=== PATIENT | female | born 1945 | race Caucasian/White ===

== ENCOUNTER 2016-05-28 18:47 | Emergency (ER) | payer MEDICARE ==
[2016-05-28 19:30] LABS: Hematocrit 39.6 % (37.0-47.0); Hemoglobin 13.4 gm/dL (12.5-16.0); Mean Cell Volume 93.4 fl (78-100); Mean Corpuscular Hemoglobin 31.6 pg (27-31); Mean Corpuscular Hgb Conc 33.8 g/dl (32-36); Mean Platelet Volume 10.7 fl (6.0-9.5); Neutrophil # 11.3 K/mm3 (1.3-6.0); Neutrophil % 86.4 % (42-75.0); Platelet Count 223 K/mm3 (150-450); Red Blood Count 4.24 M/mm3 (4.2-5.4); Red Cell Distribution Width 12.6 % (11.5-14.0); White Blood Count 13.1 K/mm3 (4.0-10.5)
[2016-05-28] MEDS ORDERED: MECLIZINE HCL 25 MG TABLET PO ONE (19:40)
[2016-05-28 19:52] LABS: Prothrombin Time (Patient) 10.7 Seconds (9.4-11.4)
[2016-05-28 19:53] LABS: INR 1.03 INR (0.90-1.10); Partial Thrombolplastin Time 31.5 Seconds (24-32)
[2016-05-28 19:59] LABS: ALT 27 U/L (19-67); AST 26 U/L (0-48); Albumin * 3.1 gm/dl (3.4-5.0); Alkaline Phosphatase * 133 U/L (50-170); Bilirubin, Total 0.5 mg/dL (0.0-1.1); Blood Urea Nitrogen 17 mg/dL (3-23); Ca. Corrected For Albumin 8.9 mg/dL (8.4-10.2); Calcium * 8.5 mg/dL (7.9-10.9); Carbon Dioxide 26.5 mmol/L (24-32.6); Chloride 102 mmol/L (97-106); Glucose * 198 mg/dL (70-110); Potassium 3.5 mmol/L (3.4-4.6); Sodium 139 mmol/L (132-142); Total Protein 6.9 gm/dL (6.2-8.2); Troponin I Less than 0.017 ng/ml (0.00-0.10)
[2016-05-28] MEDS ORDERED: MECLIZINE HCL 25 MG TABLET ONE (20:04)
--- OUTSIDE RECORDS SUMMARY | 2016-05-28 20:08 | XMS REPORT | Continuity of Care Document ---
:1945 Author Organization [facility] ([facility]) Address [address] [place] [address] Phone [phone] Care Team Providers Name Role Phone Unavailable Primary Care Provider Unavailable Source Comments This disclosure is being made pursuant to the Care Everywhere program, applicable federal and state laws, and may not contain all informaitonavailable regarding this patient.[facility] ([facility]) Active Allergies and Adverse Reactions Not on File Current Medications Not on file Active Problems Not on file Social History Tobacco Use Types Packs/Day Years Used Date Never Assessed Plan of Care Health Maintenance Due Date Last Done Comments Hepatitis B Vaccine (1 of 3 - Primary Series) 1945 Tdap Vaccine 02/05/1955 Lipid Disorder Screening 02/05/1962 Td Vaccine 02/05/1962 Mammogram 1984 Colonoscopy 02/05/1994 Zoster Vaccine 2004 Osteoporosis Screening (DXA Bone Density) 02/05/2009 Pneumococcal Vaccine (1 of 2 - PCV13) 02/05/2009 Influenza Vaccine: Seasonal (#1) 09/18/2015 Results from Last 3 Months Not on file
--- NOTE | 2016-05-28 20:24 | ERNOTE ---
Dizziness ER Record Date of Service: 05/28/16 Presenting Symptoms: dizziness Time Seen by Provider: 05/28/16 19:16 Source: patient Exam Limitations: no limitations Immunizations: IMMUNIZATION HX Immunizations Up to Date No Allergies/Adverse Reactions: Allergies Allergy/AdvReac Type Severity Reaction Status Date / Time No Known Allergies Allergy Unverified 05/28/16 19:08 Home Medications: HOME MEDICATIONS Haloperidol [Haldol] 5 mg PO DAILY 05/28/16 [Last Taken Unknown] Meclizine HCl [Antivert] 12.5 mg PO Q6H PRN #30 tab 05/28/16 [Last Taken Unknown ] Mirtazapine [Remeron] 30 mg PO HS 05/28/16 [Last Taken Unknown] carBAMazepine [Tegretol] 400 mg PO DAILY 05/28/16 [Last Taken Unknown] - History of Present Illness Narrative: Pt. comes in with c/o dizziness for four hours that began suddenly. Pt. denies any room spinning but states that she feels off balance on her feet and cannot get them to move like she would like. Pt. denies any NVD, fever, SOB, CP, palpitations, recent illness, or other symptoms. Pt. is on Haldol, Tegretol, and remeron for her bipolar. Review of Systems - Review of Systems Constitutional: Present: no symptoms reported. Absent: recent illness, fever, chills, weakness, fatigue, malaise EYE: Present: no symptoms reported ENT: Present: no symptoms reported Respiratory: Present: no symptoms reported. Absent: shortness of breath, cough , wheezing Cardiology: Present: no symptoms reported. Absent: chest pain, palpitations, edema Gastrointestinal/Abdominal: Present: no symptoms reported. Absent: nausea, vomiting, diarrhea Genitourinary: Present: no symptoms reported. Absent: frequency, pain, decreased urinary output Musculoskeletal: Present: no symptoms reported. Absent: back pain, joint pain Skin: Present: no symptoms reported Neurological: Present: dizziness/light-headedness. Absent: anxiety, depressed, numbness, tingling All Other Systems: All systems neg except as marked - Patient's Past Medical History Patient History - Medical: Depression Patient History - Cardiac/Respiratory: No pertinent hx Patient History - Cancer: No Hx of Cancer Patient History - Surgical Procedures: Hysterectomy Patient History - Other: None - Social History Living Situations: home Psych History: No pertinent hx Smoking Status: Current every day smoker Patient requests Smoking Cessation Consult: No Initiate information on Smoking Cessation: No Alcohol Use: none Drug Use: none - Immunizations Immunizations Up to Date: No Physical Exam - Physical Exam General Appearance: Present: wd/wn, alert, no apparent distress Eye Exam: Normal inspection: bilateral, PERRL: bilateral, EOMI: bilateral Ears, Nose, Throat: Present: normal ENT inspection, normal pharynx Neck: Present: normal inspection, nontender. Absent: lymphadenopathy (R), lymphadenopathy (L) Respiratory: Present: no respiratory distress, normal breath sounds, no accessory muscle use, chest nontender, lungs clear Cardiovascular/Chest: Present: regular rate, rhythm, no murmur, normal peripheral pulses Gastrointestinal/Abdominal: Present: normal bowel sounds, nontender, nondistended, soft, no organomegaly Back Exam: Present: normal inspection, normal range of motion, no CVA tenderness , no vertebral tenderness Extremity Exam: Present: normal inspection, non-tender, normal range of motion, no edema Neurological Exam: Present: alert, oriented, normal mood/affect, gamma operator II-XII nml as tested, other - extrapyramidial movements, slurring of her speech and dyskinesia. Pt. daughter confirms this is pt. norm Skin Exam: Present: normal color, warm/dry. Absent: pallor, skin rash Lymphatic Exam: Present: no adenopathy ED Progress - Date and Time Seen: Date and Time: 05/28/16 20:54 Pt. improved with meclizine and as all tests are as expected for pt. Will send pt. home on meclizine and have her follow up with PCP as her extrapyramidial movements may be contributing to her symptoms. - Results and Orders Patient's Lab Results:: I have reviewed the patient's lab results. - Vital Signs Patient's Vital Signs:: I have reviewed the patient's vital signs. Vital Signs: Vital Signs 05/28/16 19:03 Temperature 36.6 C Pulse Rate 100 Respiratory 18 Rate Blood Pressure 130/55 O2 Sat by Pulse 100 Oximetry - EKG EKG: NSR, ST depression - inferior leads EKG read: Reviewed by me EKG Comments: Interpreted by Dr Isaacs - X-Ray X-Ray #1 X-Ray: chest Interpretation: Reviewed by me X-ray Comments: COPD changes - CT/Ultrasound CT/Ultrasound Narrative: CT head negative - Progress/Reassessment Chief Complaint: Dizziness Departure Clinical Impression: BPV (benign positional vertigo) Qualifiers: Laterality: bilateral Qualified Code(s): H81.13 - Benign paroxysmal vertigo, bilateral - Departure Disposition: Home self-care Condition: Good Instructions: Vertigo, [id number] Additional Instructions: Please folow up with your primary provider in 2-3 days. Prescriptions: Meclizine HCl [Antivert] 12.5 mg PO Q6H PRN #30 tab PRN Reason: DIZZINESS
[2016-05-28 20:36] LABS: Hemoglobin A1C 5.8 % (4.00-6.0)
[2016-05-28 21:16] VITALS: BP 107/65
== END 2016-05-28 21:14 | disposition home or self-care (01) ==
LOC: ER 18:47
DX: H81.13 Benign paroxysmal vertigo, bilateral (principal); Z72.0 Tobacco use; F31.70 Bipolar disorder, currently in remission, most recent episode unspecified

== ENCOUNTER 2016-06-22 12:54 | Emergency (ER) | payer MEDICARE ==
[2016-06-22 13:36] VITALS: BP 110/73
[2016-06-22] MEDS ORDERED: ALBUTEROL SULFATE/IPRATROPIUM 3 ML NEBU IH ONE ×2 (15:29→15:39)
--- OUTSIDE RECORDS SUMMARY | 2016-06-22 15:41 | XMS REPORT | Continuity of Care Document ---
:1945 Author Organization [facility] ([facility]) Address [address] [place] [address] Phone [phone] Care Team Providers Name Role Phone Unavailable Primary Care Provider Unavailable Source Comments This disclosure is being made pursuant to the Care Everywhere program, applicable federal and state laws, and may not contain all informaitonavailable regarding this patient.[facility] ([facility]) Active Allergies and Adverse Reactions Not on [...]
--- NOTE | 2016-06-22 16:08 | ERNOTE ---
Date of Service: 06/22/16 Time Seen by Provider: 06/22/16 15:28 Stated Complaint: TROUBLE CATCHING BREATHING Presenting Symptoms:: cough, other - sob Source: patient Exam Limitations: no limitations Immunizations: IMMUNIZATION HX Immunizations Up to Date Yes History of Influenza Vaccine No Hx Pneumococcal Vaccination No Allergies/Adverse Reactions: Allergies No Known Allergies Allergy (Verified 06/22/16 13:36) Home Medications: HOME MEDICATIONS Haloperidol [Haldol] 5 mg PO DAILY 05/28/16 [Last Taken Unknown] Meclizine HCl [Antivert] 12.5 mg PO Q6H PRN #30 tab 05/28/16 [Last Taken Unknown ] Mirtazapine [Remeron] 30 mg PO HS 05/28/16 [Last Taken Unknown] carBAMazepine [Tegretol] 400 mg PO DAILY 05/28/16 [Last Taken Unknown] Albuterol Sulfate [Proair Hfa] 2 puff IH QID PRN #1 inhaler 06/22/16 [Last Taken Unknown] Levofloxacin [Levaquin] 500 mg PO DAILY #7 tablet 06/22/16 [Last Taken Unknown] - History of Present Ilness Narrative: Patient presents telling me she feels like she has bronchitis. She relates she started getting sick yesterday with nasal congestion. This has progressed and she has developed some cough and SOB. She specifically tells me she thinks she has bronchitis and has had Sx like this before. She denies CP. No vomiting or abdominal pain. No calf pain or leg swelling. Nothing makes this better or worse. No pleuritic pain. No hemoptysis Timing: constant Severity: moderate Frequency/Possible Cause: Reports: occasional episodes Modifying Factors - Improves: Reports: nothing Modifying Factors - Worsens: Reports: nothing Associated Symptoms: Reports: cough, shortness of breath, nasal congestion. Denies: chest pain/soreness, lightheadedness, sore throat, fever/chills Review of Systems - Review of Systems Constitutional: Absent: fever ENT: Present: nose congestion. Absent: ear pain Respiratory: Present: shortness of breath, cough Cardiology: Absent: chest pain Gastrointestinal/Abdominal: Absent: abdominal pain Genitourinary: Absent: dysuria Skin: Absent: rash - Patient's Past Medical History Patient History - Medical: Depression, Other Patient History - Cardiac/Respiratory: No pertinent hx Patient History - Cancer: No Hx of Cancer Patient History - Surgical Procedures: Hysterectomy Patient History - Other: None LMP (females 10-50): Menopausal - Social History Living Situations: home Psych History: No pertinent hx Smoking Status: Current every day smoker Have you smoked in the past 12 months: Yes Alcohol Use: none Drug Use: none - Immunizations Immunizations Up to Date: Yes Hx Pneumococcal Vaccination: No History of Influenza Vaccine: No Physical Exam - Physical Exam General Appearance: Present: alert, no apparent distress, other - speaksin full sentences, no distress. no respiratory distress. Some cough Eye Exam: Normal inspection: bilateral, PERRL: bilateral Ears, Nose, Throat: Absent: pharyngeal erythema, pharyngeal swelling, dry mucous membranes Neck: Present: normal inspection Respiratory: Present: no respiratory distress, normal breath sounds, lungs clear Cardiovascular/Chest: Present: regular rate, rhythm Gastrointestinal/Abdominal: Present: normal bowel sounds, nondistended, soft Back Exam: Present: normal range of motion Extremity Exam: Present: no edema, other - no DVT findings Neurological Exam: Present: alert, normal mood/affect, no motor/sensory deficits Skin Exam: Absent: skin rash ED Progress - Vital Signs Patient's Vital Signs:: I have reviewed the patient's vital signs. Vital Signs: Vital Signs 06/22/16 06/22/16 06/22/16 13:31 15:40 15:42 Temperature 36.8 C Pulse Rate 95 86 86 Respiratory 16 18 16 Rate Blood Pressure 110/73 O2 Sat by Pulse 96 97 100 Oximetry - Progress/Reassessment Chief Complaint: Upper Respiratory Symptoms Progress Note-Subjective: 06/22/16 16:02 Patient refuses CXR, labs and EKG. I had ordered all of these. She declines all testing. She feels she has bronchitis and would like antibiotics. She understands risks and benefits of workup, declines ED w/u. Given this will sign out AMA. Will cover her with ABx. She understands that she may return at any time if she changes her mind about having the recommended testing. Departure - Departure Clinical Impression: SOB (shortness of breath) Disposition: Against medical advice Condition: Stable Additional Instructions: Rest. medications as directed. You are leaving against medical advice please return if you change your mind about having the testing you have declined, develop fever, pain, trouble breathing or if your condition worsens or changes in any way. Prescriptions: Albuterol Sulfate [Proair Hfa] 2 puff IH QID PRN #1 inhaler PRN Reason: Shortness Of Breath Levofloxacin [Levaquin] 500 mg PO DAILY #7 tablet
== END 2016-06-22 16:17 | disposition home or self-care (01) ==
LOC: ER 12:54
DX: R06.02 Shortness of breath (principal); Z53.29 Procedure and treatment not carried out because of patient's decision for other reasons; F17.210 Nicotine dependence, cigarettes, uncomplicated; F32.9 Major depressive disorder, single episode, unspecified

== ENCOUNTER 2016-06-24 12:58 | Emergency (ER) | payer MEDICARE ==
--- OUTSIDE RECORDS SUMMARY | 2016-06-24 13:25 | XMS REPORT | Continuity of Care Document ---
:1945 Author Organization [facility] ([facility]) Address [address] [place] [address] Phone [phone] Care Team Providers Name Role Phone Unavailable Primary Care Provider Unavailable Source Comments This disclosure is being made pursuant to the Care Everywhere program, applicable federal and state laws, and may not contain all informaitonavailable regarding this patient.[facility] ([facility]) Active Allergies and Adverse Reactions Not [...]
[2016-06-24 13:38] LABS: Hematocrit 40.2 % (37.0-47.0); Hemoglobin 13.5 gm/dL (12.5-16.0); Mean Cell Volume 93.7 fl (78-100); Mean Corpuscular Hemoglobin 31.5 pg (27-31); Mean Corpuscular Hgb Conc 33.6 g/dl (32-36); Mean Platelet Volume 10.4 fl (6.0-9.5); Neutrophil # 4.6 K/mm3 (1.3-6.0); Neutrophil % 68.8 % (42-75.0); Platelet Count 219 K/mm3 (150-450); Red Blood Count 4.29 M/mm3 (4.2-5.4); Red Cell Distribution Width 13.3 % (11.5-14.0); White Blood Count 6.7 K/mm3 (4.0-10.5)
--- NOTE | 2016-06-24 14:46 | ERNOTE ---
Dyspnea - Date Date of Service: 06/24/16 - General Presenting Symptoms: shortness of breath, difficulty of breathing Time Seen by Provider: 06/24/16 13:18 Source: patient - Immun/Allergies/Home Medications Immunizations: IMMUNIZATION HX Immunizations Up to Date Yes History of Influenza Vaccine No Hx Pneumococcal Vaccination No Allergies/Adverse Reactions: Allergies No Known Allergies Allergy (Verified 06/24/16 13:06) Home Medications: HOME MEDICATIONS Haloperidol [Haldol] 5 mg PO DAILY 05/28/16 [Last Taken Unknown] Meclizine HCl [Antivert] 12.5 mg PO Q6H PRN #30 tab 05/28/16 [Last Taken Unknown ] Mirtazapine [Remeron] 30 mg PO HS 05/28/16 [Last Taken Unknown] carBAMazepine [Tegretol] 400 mg PO DAILY 05/28/16 [Last Taken Unknown] Albuterol Sulfate [Proair Hfa] 2 puff IH QID PRN #1 inhaler 06/22/16 [Last Taken Unknown] Levofloxacin [Levaquin] 500 mg PO DAILY #7 tablet 06/22/16 [Last Taken Unknown] predniSONE [Prednisone] See Taper PO DAILY #18 tablet 06/24/16 [Last Taken Unknown] - History of Present Illness Narrative: 71-year-old female presents to the emergency room for shortness of breath. Patient states that she was here yesterday and is taking her medication but refused x-ray and now she wants one. Patient also states that she is feeling better today but would like an x-ray Date (Duration): 06/24/16 Severity: mild Treatment [employer]: none Initiating event: Reports: upper resp illness, exposure to smoke Frequency of episodes: Reports: occassional episodes - when she "walks a long time" Modifying Factors - (Improves): Reports: rest Modifying Factors (Worsens): Reports: activity Associated Symptoms-Dyspnea: Reports: cough, wheezing. Denies: fever/chills, sweating, dizziness, lightheadedness, weakness, anxiety Prior Treatment: Reports: recently seen, treated by physician, currently on antibiotics Review of Systems - Review of Systems Constitutional: Present: recent illness. Absent: fever, chills EYE: Present: no symptoms reported ENT: Present: no symptoms reported Respiratory: Present: See HPI Cardiology: Present: no symptoms reported Gastrointestinal/Abdominal: Present: no symptoms reported Genitourinary: Present: no symptoms reported Musculoskeletal: Present: no symptoms reported Skin: Present: no symptoms reported Neurological: Present: no symptoms reported Endocrine: Present: no symptoms reported Hematologic/Lymphatic: Present: no symptoms reported Psych: Present: no symptoms reported - Patient's Past Medical History Patient History - Medical: Depression, Other Patient History - Cardiac/Respiratory: No pertinent hx Patient History - Cancer: No Hx of Cancer Patient History - Surgical Procedures: Hysterectomy Patient History - Other: None - Social History Living Situations: home Psych History: No pertinent hx Alcohol Use: none Drug Use: none - Immunizations Immunizations Up to Date: Yes Hx Pneumococcal Vaccination: No History of Influenza Vaccine: No Physical Exam - Physical Exam Narrative: Patient is resting comfortably in exam room. Patient does have a cough and expiratory wheezes. No respiratory distress observed. Patient states she is feeling better but is requesting a chest x-ray at this time. General Appearance: Present: wd/wn, alert, no apparent distress Eye Exam: Normal inspection: bilateral Ears, Nose, Throat: Present: normal ENT inspection. Absent: nasal congestion, sinus pain/drainage, pharyngeal erythema Neck: Present: normal inspection, nontender, full range of motion Respiratory: Present: no respiratory distress, no accessory muscle use, wheezing Cardiovascular/Chest: Present: regular rate, rhythm, no murmur, normal peripheral pulses Gastrointestinal/Abdominal: Present: normal bowel sounds Back Exam: Present: normal inspection, normal range of motion Extremity Exam: Present: normal inspection, normal range of motion, no edema Neurological Exam: Present: alert, oriented, normal mood/affect, no motor/ sensory deficits, facial droop - related to polio as a child Skin Exam: Present: normal color, warm/dry Lymphatic Exam: Present: no adenopathy ED Progress - Results and Orders Patient's Lab Results:: I have reviewed the patient's lab results. Results and Orders: no acute findings - Vital Signs Vital Signs: Vital Signs 06/24/16 06/24/16 13:02 13:22 Temperature 36.7 C 37.2 C Pulse Rate 93 94 Respiratory 12 14 Rate Blood Pressure 121/81 O2 Sat by Pulse 98 97 Oximetry - X-Ray X-Ray #1 X-Ray: chest Interpretation: Reviewed by me X-ray Comments: FINDINGS: Chest PA Lateral * Hyperinflated lung volumes. No consolidation or mass. No pneumothorax or pleural fluid collections. Cardiac size within normal limits. Vascular calcifications overlying the aortic knob, stable. Trachea is in normal position. Bones show degenerative changes of the spine. IMPRESSION: 1. No focal acute cardiopulmonary finding. 2. Hyperinflated lungs. Correlate clinically for acute or chronic bronchitis or reactive airways disease. Also consider COPD, if the patient has significant history of tobacco use. Electronically signed by Sundar Castaneda M.D.. - Progress/Reassessment Chief Complaint: Dyspnea Progress:: Unchanged Plan - Plan Plan: Patient educated on smoking cessation but states she is going to quit smoking anytime soon. Patient encouraged to primary care provider related to her chest x-ray results. Departure Clinical Impression: SOB (shortness of breath) - Departure Disposition: Home Follow Up Needed Condition: Stable Instructions: Chronic Obstructive Pulmonary Disease, [id number], Smoking Cessation, Tips for Success, [id number] Additional Instructions: Previous home medications. Please consider quitting smoking related to your diagnosis. Follow-up through primary care in the next 2-3 days. Return to emergency room if symptoms persist or become worse. Prescriptions: predniSONE [Prednisone] See Taper PO DAILY #18 tablet
[2016-06-24 14:52] VITALS: BP 138/84
== END 2016-06-24 14:54 | disposition home or self-care (01) ==
LOC: ER 12:58
DX: R06.02 Shortness of breath (principal); Z72.0 Tobacco use